=== PATIENT | male | born 1980 | race Caucasian/White ===

== ENCOUNTER 2017-01-26 08:13 | Day surgery (SDC) | payer BC ==
--- NOTE | 2017-01-26 10:33 | CP.SDSHP ---
Same Day Surgery H & P - History Proposed Procedure: EGD/colonoscopy Pre-Op Diagnosis: melena - Allergies Allergies: Allergies No Known Allergies Allergy (Verified 01/26/17 09:33) - Physical Exam General Appearance: NAD Vital Signs: Vital Signs 01/26/17 09:00 Temperature 97 F L Pulse Rate 61 Respiratory 20 Rate Blood Pressure 118/68 O2 Sat by Pulse 100 Oximetry Mental Status: Alert & Oriented x3 Neuro: WNL Heart: WNL Lungs: WNL GI: WNL - {Optional Preform as Required} Abdomen: WNL - Impression Pt. Evaluated Today:Candidate for Anesthesia & Procedure: Yes - Date & Time Date: 01/26/17 Time: 10:33 Short Stay Discharge - Short Stay Discharge Admitting Diagnosis/Reason for Visit: MELENA Disposition: HOME/ ROUTINE
[2017-01-26] MEDS ORDERED: Lactated Ringer's 1,000 ML IV ONE (11:20)
[2017-01-26] MEDS ORDERED: Propofol 10 mg/ml Inj (20 ML) ONE ×2 (11:22→11:41)
[2017-01-26] MEDS ORDERED: Lidocaine Hydrochloride 5 ML INJ ONE (11:22)
[2017-01-26] MEDS ORDERED: Lactated Ringer's 500 ML IV SCH (12:00)
[2017-01-26 12:26] VITALS: TEMP 97.3; O2SAT 100
[2017-01-26 13:08] VITALS: BP 119/76; PULSE 53; RESP 15
== END 2017-01-26 13:23 | disposition home or self-care (01) ==
LOC: C.ENDO 08:13
PROVIDERS: ATTEND Internal Medicine Gastroenterology
DX: K52.9 Noninfective gastroenteritis and colitis, unspecified (principal); K92.1 Melena
CPT/HCPCS: 45380; 87045; 87177; 87209; 87230; 88305; 88313; 88342; J2704; J3010; J7120

== ENCOUNTER 2017-12-21 07:49 | Day surgery (SDC) | payer BC ==
[2017-12-20 13:40] VITALS: BMI 24.9
[2017-12-21] MEDS ORDERED: Propofol 10 mg/ml Inj (20 ML) ONE (10:17)
[2017-12-21] MEDS ORDERED: Methylene Blue 10 mg/mL(10ml) IV ONE (10:22)
[2017-12-21] MEDS ORDERED: Midazolam 2 MG/2 ML VIAL ONE (10:23)
[2017-12-21 10:58] VITALS: TEMP 98
[2017-12-21 11:11] VITALS: O2SAT 99
[2017-12-21] MEDS ORDERED: Lidocaine Hydrochloride 5 ML INJ ONE (11:51)
[2017-12-21 12:32] VITALS: BP 105/99; PULSE 66; RESP 15
== END 2017-12-21 11:50 | disposition home or self-care (01) ==
LOC: C.ENDO 07:49
PROVIDERS: ATTEND Internal Medicine Gastroenterology
DX: K51.90 Ulcerative colitis, unspecified, without complications (principal); K64.8 Other hemorrhoids
CPT/HCPCS: 45380; 88305; J2250; J2704; J3010